=== PATIENT | female | born 1975 | race Caucasian/White ===

== ENCOUNTER 2017-04-09 12:38 | Emergency (ER) | payer OTHER ==
[~2017-04-09] VITALS: Ht 170.2 cm; Wt 143.3 kg
[~2017-04-09 12:38] MED LIST: NAPROSYN500 MG PO; NORCO 7.5/321 TABLET PO
[2017-04-09] MEDS ORDERED: NAPROSYN500 MG PO (14:24)
[2017-04-09 14:43] VITALS: BP 128/102
== END 2017-04-09 14:43 | disposition home or self-care (01) ==
LOC: EME 12:38
DX: S89.92XA Unspecified injury of left lower leg, initial encounter (principal); W01.0XXA Fall on same level from slipping, tripping and stumbling without subsequent striking against object, initial encounter
CPT/HCPCS: 73564; 99281; 99284; J1885